=== PATIENT | male | born 1965 | race Caucasian/White ===

== ENCOUNTER 2016-11-26 22:38 | Emergency (ER) | payer MEDICAID ==
[~2016-11-26] VITALS: Ht 172.7 cm; Wt 80.0 kg
[~2016-11-26 22:38] MED LIST: AMLO5TAB2 PO
[2016-11-27 01:59] VITALS: BP 104/67
== END 2016-11-27 02:01 | disposition home or self-care (01) ==
LOC: ED 23:51
DX: F10.220 Alcohol dependence with intoxication, uncomplicated (principal); I10 Essential (primary) hypertension
CPT/HCPCS: 99283